=== PATIENT | male | born 1960 | race Caucasian/White ===

== ENCOUNTER 2020-08-05 17:34 | Emergency (ER) | payer MEDICARE, OTHER ==
[2020-08-05 19:39] LABS: HEMOGLOBIN 15.7 gm/dl (14.0-17.5); RED BLOOD COUNT 5.08 M/UL (4.20-5.50); WHITE BLOOD COUNT 4.5 K/UL (4.5-11.0)
[2020-08-05 19:54] LABS: BUN/CREATININE RATIO 18 (0-10)
== END 2020-08-05 22:10 | disposition home or self-care (01) ==
LOC: ER1 17:34
PROVIDERS: Physician Assistant
DX: U07.1 COVID-19 (principal); I12.9 Hypertensive chronic kidney disease with stage 1 through stage 4 chronic kidney disease, or unspecified chronic kidney disease; N18.9 Chronic kidney disease, unspecified; Z94.0 Kidney transplant status
CPT/HCPCS: 36415; 80053; 85025; 93005; 99283; M0239